=== PATIENT | female | born 1945 | race Caucasian/White ===

== ENCOUNTER 2016-10-28 18:58 | Emergency (ER) | payer OTHER ==
[2016-10-28 19:07] VITALS: PULSE 64; RESP 16
--- NOTE | 2016-10-28 19:19 | EDPHY ---
H & P Smoking Status: Never smoked Time Seen by Provider: 10/28/16 19:09 HPI/ROS: CHIEF COMPLAINT: Head injury HISTORY OF PRESENT ILLNESS: Patient was backing down concrete stairs at the tennis court at 1:00 p.m. when she lost her balance and fell down hitting back of her head. Presents with headache and laceration to her scalp. No loss of consciousness and no vomiting. No vertigo or ataxia. She has some mild neck pain but no weakness or numbness in extremities. She had a sore right hand and hip but is able to walk without any change in symptoms. She really only complains of her head injury. REVIEW OF SYSTEMS: Eye: no change in vision ENT: no sore throat Cardiac: no chest pain or syncope Pulmonary: no cough or SOB Abdomen: no vomiting, diarrhea, abdominal pain Musculoskeletal: no back pain Skin: Laceration on the scalp Neuro: As above Constitutional: no fever : no urinary symptoms A comprehensive 10 point review of systems is otherwise negative aside from elements mentioned in the history of present illness. PAST MEDICAL HISTORY: Hyperlipidemia Social history: , no alcohol today General Appearance: Alert and conversant, cooperative. Eyes: No scleral icterus. ENT, Mouth: Normal mucous membranes. Respiratory: Normal respiratory effort, breath sounds equal, lungs are clear to auscultation. Cardiovascular: Regular rate and rhythm. Gastrointestinal: Abdomen is soft and non tender. Neurological: Alert and oriented x3. Normally conversant. Face symmetric, normal movement and sensation in all extremities. No pronator drift. Patient is not ataxic. Normal gait. Fluent speech. Skin: Posterior scalp laceration on the occiput. Musculoskeletal: No extremity bony tenderness. She can walk and is not ataxic. She can do a deep knee bend. No hand or snuffbox bony tenderness. No midline thoracic or lumbar spinal tenderness. Some diffuse neck tenderness not well localized. Psychiatric: Not agitated. Emergency Department course/MDM: Went to urgent care and got tetanus vaccine updated and was sent here. Plan for head and cervical spine CT, wound care and suture scalp laceration. 2049: CT per [place] shows SDH and left frontal intraparenchymal hemorrhage; discussed with the patient and with neurosurgeon Dr. Ball at this time. He reviewed CT scan and we discussed the case in detail and he recommends discharge with outpatient clinical monitoring. 2125: reexamined, reviewed CT with patient and family on PACs, they are comfortable with DC and clinical followup. (Yovani Hernández) Constitutional: Initial Vital Signs Temperature (C) 36.4 C 10/28/16 19:02 Heart Rate 64 10/28/16 19:02 Respiratory Rate 16 10/28/16 19:02 Blood Pressure 99/50 L 10/28/16 19:02 O2 Sat (%) 97 10/28/16 19:02 O2 Delivery Mode Room Air Allergies/Adverse Reactions: No Known Allergies Allergy (Unverified 10/28/16 19:01) Home Medications: Medication Instructions Recorded Paxil 30mg (*) 10/28/16 SIMVASTATIN 10/28/16 Medical Decision Making Consult/Admit Bed Type: [facility] - Diagnostics Imaging Results: Imaging Impressions Cervical Spine CT 10/28/16 19:16 Impression: 1. No definite fracture. 2. Moderate cervical spondylosis, worse at C5-C6, resulting in mild to moderate central canal and neural foraminal stenosis. 3. If there is persistent pain or neurological deficit, recommend MR cervical spine and consider flexion and extension views, if clinically indicated. Findings and recommendations discussed with Emergency Department physician, Yovani Hernández M.D., at 2100 hours, on October 28, 2016. Final report concurs with initial preliminary interpretation. Head CT 10/28/16 19:16 Impression: 1. Small right frontal and right parafalcine subdural hematomas. 2. Small left frontal hemorrhagic cortical contusion. 3. Right parietal scalp laceration, without skull fracture. 4. Mild atrophy and moderate microvascular ischemic gliosis. 5. Cerebrovascular atherosclerosis. 6. No midline shift, herniation, or definite infarct. Findings and recommendations discussed with Emergency Department physician, Yovani Hernández M.D., at 2050 hours, on October 28, 2016. Final report concurs with initial preliminary interpretation. Procedures: Procedure: Laceration repair. Verbal consent was obtained from the patient. The 5 cm laceration on the occipital scalp was anesthetized in the usual fashion. The wound was irrigated, draped and explored to its base with a gloved finger. There were no deep structures involved. No tendon injury was identified. The wound was repaired with 4 0 Prolene, 7 simple interrupted sutures. The wound repair was simple. The procedure was performed by myself. (Miguel Angel Gonsalez) Differential Diagnosis: Differential diagnosis considered for head injury including but not limited to concussion, skull fracture, intraparenchymal contusion, subarachnoid, subdural and epidural hematoma. (Yovani Hernández) Departure - Departure Disposition: Home, Routine, Self-Care Clinical Impression: Subdural hematoma Occipital scalp laceration Qualifiers: Encounter type: initial encounter Qualified Code(s): S01.01XA - Laceration without foreign body of scalp, initial encounter Condition: Good Instructions: Laceration (ED), Head Injury (ED) Additional Instructions: Wound Care Follow-Up: Removal of sutures in 7 days. Suture removal is complimentary in uncomplicated cases. Infection or abnormal findings would require reevaluation by the MD. In that case, you may be billed. Referrals: Shelli Gupta MD [Primary Care Provider] - As per Instructions Jaydon Ball MD [Medical Doctor] - As per Instructions (Dr. Ball's office from Neurosurgery office will call you tomorrow.)
[2016-10-28 21:45] VITALS: BP 150/86; TEMP 97.9; O2SAT 94
== END 2016-10-28 21:44 | disposition home or self-care (01) ==
PROC: 0HQ0XZZ Repair Scalp Skin, External Approach (ICD-10-PCS; principal; 2016-10-28)
DX: S01.01XA Laceration without foreign body of scalp, initial encounter (principal); S06.5X0A Traumatic subdural hemorrhage without loss of consciousness, initial encounter; W10.8XXA Fall (on) (from) other stairs and steps, initial encounter; Y92.312 Tennis court as the place of occurrence of the external cause

== ENCOUNTER → 2017-02-24 | Outpatient (CLI) | payer OTHER | LOC: FIMAGING 08:43 | PROVIDERS: ATTEND Family Medicine | DX: Z12.31 Encounter for screening mammogram for malignant neoplasm of breast (principal) | CPT/HCPCS: G0202 ==

== ENCOUNTER → 2017-02-28 | Outpatient (CLI) | payer OTHER | LOC: FIMAGING 14:12 | PROVIDERS: ATTEND Family Medicine | DX: D25.1 Intramural leiomyoma of uterus (principal); N76.0 Acute vaginitis; Z79.899 Other long term (current) drug therapy ==

== ENCOUNTER 2018-05-24 17:42 | Observation (INO) | payer OTHER ==
[2018-05-24] MEDS ORDERED: NS 1,000 ML IV ONE (17:52)
--- NOTE | 2018-05-24 17:52 | EDPHY ---
H & P Stated Complaint: R lower abd pain 1 day, chills Time Seen by Provider: 05/24/18 17:52 HPI/ROS: HPI CHIEF COMPLAINT: Abdominal pain, nausea, fever HISTORY OF PRESENT ILLNESS: Very pleasant 72 female, presents emergency room for abdominal pain nausea and fever. Patient reports that she had a greasy hamburger around noon today. Around 1:00 to 2:00 in a.m. Afternoon she developed sudden-onset chills, rigors, shaking, associated nausea and abdominal pain. No vomiting. No diarrhea. Her pain is persisted it is mainly on the right side of her abdomen right lower quadrant right upper quadrant. She has associated nausea with this but no vomiting. She states she took her temperature at home was 102. She is afebrile here. No abdominal surgical history Past Medical History: Significant medical history for hyperlipidemia. Past Surgical History: Denies Social History: Denies drugs alcohol tobacco. 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 at bedside. Family History: Noncontributory ROS REVIEW OF SYSTEMS: 10 Systems were reviewed and negative with the exception of the elements mentioned in the history of present illness. Exam Constitutional nontoxic appearing triage nursing summary reviewed, vital signs reviewed, awake/alert. Vital signs stable Eyes normal conjunctivae and sclera, EOMI, PERRLA. HENT normal inspection, atraumatic, moist mucus membranes, no epistaxis, neck supple/ no meningismus, no raccoon eyes. Respiratory clear to auscultation bilaterally, normal breath sounds, no respiratory distress, no wheezing. Cardiovascular rate normal, regular rhythm, no murmur, no edema, distal pulses normal. Gastrointestinal mildly tender right upper quadrant right lower quadrant. No peritoneal signs, no rebound, no guarding, normal bowel sounds, no distension, no pulsatile mass. Genitourinary no CVA tenderness. Musculoskeletal no midline vertebral tenderness, full range of motion, no calf swelling, no tenderness of extremities, no meningismus, good pulses, neurovascularly intact. Skin pink, warm, & dry, no rash, skin atraumatic. Neurologic awake, alert and oriented x 3, AAOx3, moves all 4 extremities equally, motor intact, sensory intact, CN II-XII intact, normal cerebellar, normal vision, normal speech. Psychiatric normal mood/affect. Heme/Lymph/Immune no lymphadenopathy. Differential diagnosis includes but is not limited to and in no particular order : Bowel obstruction, appendicitis, gallbladder disease, diverticulitis, colitis , enteritis, perforated viscus, gastritis, GERD, esophagitis, urinary tract infection, pyelonephritis, kidney stones Medical Decision Making: Plan for this patient IV establishment with IV fluid bolus Zofran nausea 0.5 Dilaudid for pain control CBC, chemistry, lactic, blood cultures, urinalysis CT scan abdomen pelvis with IV contrast due to abdominal pain. Re-evaluate. Re-evaluation: Discussed with the patient lab results and CT imaging. Her CT scan does not show any evidence of acute inflammation however air-fluid and fluid-filled loops. Possible enteritis. Additionally unable to visualize the appendix. No free air no free fluid. Given the patient's white count, abdominal pain, chills and rigors I do recommend we observe her overnight. I spoke with the hospitalist service Dr. Jones he agrees to admit Spoke with the patient she agrees for admission observation overnight Source: Patient - Medical/Surgical History Hx Asthma: No Hx Chronic Respiratory Disease: No Hx Diabetes: No Hx Cardiac Disease: No Hx Renal Disease: No Hx Cirrhosis: No Hx Alcoholism: No Hx HIV/AIDS: No Hx Splenectomy or Spleen Trauma: No Other PMH: hyperlipidemia - Social History Smoking Status: Never smoked Constitutional: Initial Vital Signs Temperature (C) 37.7 C 05/24/18 17:45 Heart Rate 88 05/24/18 17:45 Respiratory Rate 18 05/24/18 17:45 Blood Pressure 119/83 H 05/24/18 17:45 O2 Sat (%) 95 05/24/18 17:45 O2 Delivery Mode Nasal Cannula O2 (L/minute) 2 Allergies/Adverse Reactions: No Known Allergies Allergy (Unverified 10/28/16 19:01) Home Medications: Medication Instructions Recorded Aspirin EC [Aspirin EC 81 mg (*)] 81 mg PO HS 05/24/18 Calcium Carbonate [Tums 500MG (*)] 1,000 mg PO BIDMEAL PRN 05/24/18 PARoxetine HCL [Paxil 30mg (*)] 30 mg PO HS 05/24/18 Propylene Glycol/Peg 400/Pf 1 each OP Q6H PRN 05/24/18 [Systane 0.3-0.4% Eye Drop] Simvastatin 10 mg PO HS 05/24/18 Acetaminophen [Tylenol 325mg (*)] 650 mg PO Q4HRS PRN tab 05/25/18 Medical Decision Making - Data Points Laboratory Results: Laboratory Results 05/24/18 18:01 05/24/18 18:01 Medications Given: Discontinued Medications Enoxaparin Sodium (Lovenox) 40 mg SC DAILY [facility] Stop: 11/21/18 08:59 Last Admin: 05/25/18 08:10 Dose: 40 mg Hydromorphone HCl (Dilaudid) 0.5 mg IVP EDNOW ONE Stop: 05/24/18 18:02 Last Admin: 05/24/18 18:07 Dose: 0.5 mg Sodium Chloride (Ns) 1,000 mls @ 0 mls/hr IV EDNOW ONE; Wide Open PRN Reason: Protocol Stop: 05/24/18 17:53 Last Admin: 05/24/18 18:10 Dose: 1,000 mls Sodium Chloride (Ns) 1,000 mls @ 125 mls/hr IV CONT DWAIN Stop: 11/20/18 20:14 Last Admin: 05/25/18 08:09 Dose: 1,000 mls Ondansetron HCl (Zofran) 4 mg IVP EDNOW ONE Stop: 05/24/18 18:00 Last Admin: 05/24/18 18:04 Dose: 4 mg Departure - Departure [facility] Clinical Impression: Abdominal pain Qualifiers: Abdominal location: unspecified location Qualified Code(s): R10.9 - Unspecified abdominal pain Condition: Good
[2018-05-24] MEDS ORDERED: ONDANSETRON 4 MG/2 ML VIAL IVP ONE (17:59)
[2018-05-24] MEDS ORDERED: HYDROmorphONE/DILAUDID 2 MG/ML INJ IVP ONE (18:01)
[2018-05-24 18:20] LABS: PLATELET COUNT 272 10^3/uL (150-400)
[2018-05-24 18:31] LABS: INR 0.9 (0.83-1.16); PROTIME(PATIENT) 12.4 SEC (12.0-15.0)
[2018-05-24] MEDS ORDERED: IOPAMIDOL (ISOVUE-300) 100 ML BTL ONE (18:47)
[2018-05-24] MEDS ORDERED: HYDROCODONE/APAP 5/325 TAB PO PRN (20:07)
[2018-05-24] MEDS ORDERED: ONDANSETRON 4 MG/2 ML VIAL IVP PRN (20:07)
[2018-05-24] MEDS ORDERED: ACETAMINOPHEN 325 MG TAB PO PRN (20:07)
[2018-05-24] MEDS ORDERED: HYDROmorphONE/DILAUDID 1 MG/ML INJ IVP PRN (20:07)
[2018-05-24] MEDS ORDERED: ONDANSETRON DISINTEGRATING 4 MG TAB PO PRN (20:07)
[2018-05-24] MEDS ORDERED: PROMETHAZINE HCL 25 MG/ML INJ IVP PRN (20:07)
[2018-05-24] MEDS ORDERED: NS 1,000 ML IV SCH (20:15)
--- NOTE | 2018-05-24 20:38 | PDGENHP ---
History and Physical - Chief Complaint Abdominal Pain, Fever, Nausea - History of Present Illness Millicent Lo is a 72 yo F with a PMHx of HLD who presents to [facility] for abdominal pain, fever, and nausea. She reports eating a hamburger for lunch today around noon. At apprx 1-2 PM she started having acute-onset chills and rigors with associated nausea and abominal pain. She denies any vomiting, diarrhea. She complains of R sided abdominal pain, specifically RLQ. Pain is sharp, non- radiating. She reports taking her temperature at home which was 102. She denies any chest pain, SOB, edema, headache, hematochezia, hematemesis. History Information - Allergies/Home Medication List Allergies/Adverse Reactions: No Known Allergies Allergy (Unverified 10/28/16 19:01) Home Medications: Aspirin EC [Aspirin EC 81 mg (*)] 81 mg PO HS 05/24/18 [Last Taken 05/23/18] Calcium Carbonate [Tums 500MG (*)] 1,000 mg PO BIDMEAL PRN 05/24/18 [Last Taken 05/24/18] PARoxetine HCL [Paxil 30mg (*)] 30 mg PO HS 05/24/18 [Last Taken 05/23/18] Propylene Glycol/Peg 400/Pf [Systane 0.3-0.4% Eye Drops] 1 each OP Q6H PRN 05/24 [Last Taken Unknown] Simvastatin 10 mg PO HS 05/24/18 [Last Taken 05/23/18] I have personally reviewed and updated: family history, medical history, social history, surgical history - Past Medical History hyperlipidemia - Surgical History Reports: no pertinent surgical hx - Family History Positive for: non-pertinent - Social History Smoking Status: Never smoked Review of Systems Review of Systems: ROS: 10pt was reviewed & negative except for what was stated in HPI & below Physical Exam Physical Exam: Temp Pulse Resp BP Pulse Ox 38.1 C 87 18 123/66 H 94 05/24/18 19:57 05/24/18 19:57 05/24/18 19:57 05/24/18 19:57 05/24/18 19:57 Constitutional: no apparent distress Eyes: PERRL Ears, Nose, Mouth, Throat: moist mucous membranes Cardiovascular: regular rate and rhythym Respiratory: no respiratory distress Gastrointestinal: tenderness Skin: warm Musculoskeletal: full muscle strength Neurologic: AAOx3 Psychiatric: interacting appropriately Lab Data & Imaging Review 05/24/18 18:01 05/24/18 18: WBC 10.20 10^3/uL (3.80-9.50) H 05/24/18 18: RBC 4.24 10^6/uL (4.18-5.33) 05/24/18 18: Hgb 13.0 g/dL (12.6-16.3) 05/24/18 18: Hct 37.3 % (38.0-47.0) L 05/24/18 18: MCV 88.0 fL (81.5-99.8) 05/24/18 18: MCH 30.7 pg (27.9-34.1) 05/24/18 18: MCHC 34.9 g/dL (32.4-36.7) 05/24/18 18: RDW 12.9 % (11.5-15.2) 05/24/18 18: Plt Count 272 10^3/uL (150-400) 05/24/18 18: MPV 9.9 fL (8.7-11.7) 05/24/18 18: Neut % (Auto) 85.3 % (39.3-74.2) H 05/24/18 18: Lymph % (Auto) 8.8 % (15.0-45.0) L 05/24/18 18: Kings % (Auto) 4.8 % (4.5-13.0) 05/24/18 18: Eos % (Auto) 0.5 % (0.6-7.6) L 05/24/18 18: Baso % (Auto) 0.2 % (0.3-1.7) L 05/24/18 18: Nucleat RBC Rel Count 0.0 % (0.0-0.2) 05/24/18 18: Absolute Neuts (auto) 8.70 10^3/uL (1.70-6.50) H 05/24/18 18: Absolute Lymphs (auto) 0.90 10^3/uL (1.00-3.00) L 05/24/18 18:01 Absolute Monos (auto) 0.49 10^3/uL (0.30-0.80) 05/24/18 18: Absolute Eos (auto) 0.05 10^3/uL (0.03-0.40) 05/24/18 18: Absolute Basos (auto) 0.02 10^3/uL (0.02-0.10) 05/24/18 18: Absolute Nucleated RBC 0.00 10^3/uL (0-0.01) 05/24/18 18: Immature Gran % 0.4 % (0.0-1.1) 05/24/18 18: Immature Gran # 0.04 10^3/uL (0.00-0.10) 05/24/18 18: PT 12.4 SEC (12.0-15.0) 05/24/18 18: INR 0.90 (0.83-1.16) 05/24/18 18: APTT 25.7 SEC (23.0-38.0) 05/24/18 18: VBG Lactic Acid 1.2 mmol/L (0.7-2.1) 05/24/18 18: Sodium 134 mEq/L (135-145) L 05/24/18 18: Potassium 3.8 mEq/L (3.5-5.2) 05/24/18 18: Chloride 98 mEq/L (97-110) 05/24/18 18: Carbon Dioxide 23 mEq/l (22-31) 05/24/18 18: Anion Gap 13 mEq/L (6-14) 05/24/18 18: BUN 12 mg/dL (7-23) 05/24/18 18: Creatinine 0.8 mg/dL (0.6-1.0) 05/24/18 18: Estimated GFR > 60 05/24/18 18: Glucose 103 mg/dL (70-100) H 05/24/18 18: Calcium 9.7 mg/dL (8.5-10.4) 05/24/18 18: Total Bilirubin 0.3 mg/dL (0.1-1.4) 05/24/18 18: Conjugated Bilirubin 0.1 mg/dL (0.0-0.5) 05/24/18 18:01 Unconjugated Bilirubin 0.2 mg/dL (0.0-1.1) 05/24/18 18:01 AST 59 IU/L (14-46) H 05/24/18 18:01 ALT 31 IU/L (9-52) 05/24/18 18:01 Alkaline Phosphatase 81 IU/L (38-126) 05/24/18 18:01 Total Protein 7.5 g/dL (6.3-8.2) 05/24/18 18:01 Albumin 4.5 g/dL (3.5-5.0) 05/24/18 18:01 Lipase 172 IU/L (23-300) 05/24/18 18:01 Urine Color PALE YELLOW 05/24/18 19:35 Urine Appearance CLEAR 05/24/18 19:35 Urine pH 6.0 (5.0-7.5) 05/24/18 19:35 Ur Specific [place] 1.012 (1.002-1.030) 05/24/18 19:35 Urine Protein NEGATIVE (NEGATIVE) 05/24/18 19:35 Urine Ketones NEGATIVE (NEGATIVE) 05/24/18 19:35 Urine Blood 1+ (NEGATIVE) H 05/24/18 19:35 Urine Nitrate NEGATIVE (NEGATIVE) 05/24/18 19:35 Urine Bilirubin NEGATIVE (NEGATIVE) 05/24/18 19:35 Urine Urobilinogen NEGATIVE EU (0.2-1.0) 05/24/18 19:35 Ur Leukocyte Esterase TRACE (NEGATIVE) H 05/24/18 19:35 Urine RBC 1-3 /hpf (0-3) 05/24/18 19:35 Urine WBC 1-3 /hpf (0-3) 05/24/18 19:35 Ur Epithelial Cells TRACE /lpf (NONE-1+) 05/24/18 19:35 Urine Mucus TRACE /lpf (NONE-1+) 05/24/18 19:35 Urine Glucose NEGATIVE (NEGATIVE) 05/24/18 19:35 Assessment & Plan Assessment: Acute Gastroenteritis - Acute onset abdominal pain, nausea, fevers at home today after eating hamburger for lunch - CT A/P shows moderately distended cecum, ileum filled with gas and liquid fecal material, no obvious obstruction, possible sigmoid inflammation - Will treat supportively with IVF, pain and anti-emetic medications PRN - GI PCR ordered Hyponatremia - Na 134 on admission - Likely in setting of above - Continue to monitor HLD - Continue home statin when med rec complete FEN: IVF, NPO Code: FULL PPx: SubQ Lovenox Dispo: Admit to Observation
[2018-05-25 08:20] VITALS: BP 115/54
[2018-05-25] MEDS ORDERED: ENOXAPARIN 40 MG/0.4 ML SYR SC SCH (09:00)
[2018-05-25] MEDS ORDERED: CALCIUM CARBONATE 500 MG CHEWABLE TAB PO PRN (09:37)
[2018-05-25] MEDS ORDERED: PROPYLENE GLYCOL OP PRN (09:37)
[2018-05-25] MEDS ORDERED: PEG OP PRN (09:37)
[2018-05-25] MEDS ORDERED: ASPIRIN EC 81 MG TAB PO SCH (21:00)
[2018-05-25] MEDS ORDERED: PRAVASTATIN SODIUM 20 MG TAB PO SCH (21:00)
--- NOTE | 2018-05-25 22:58 | GDS ---
DISCHARGE DIAGNOSIS: Abdominal pain with nausea and vomiting. PHYSICAL EXAMINATION: GENERAL: The patient is alert. VITAL SIGNS: Afebrile at 36.3, pulse 59, res piratory rate 16, blood pressure is 115/54. She is saturating 96% on room air. I have seen evaluated the patient on the day of discharge. HOSPITAL COURSE: The patient is a 72-year-old female who presented to the emergency room after exper iencing acute onset of chills and rigors with nausea and abdominal pain. She was admitted the hospit [facility] for observation status and rehydration. The etiology of her acute gastroenteritis is unclear at t his time. However, symptoms have completely resolved. She is tolerating a regular diet. She has no further complaints and is eager to be discharged home. Her hyponatremia has been treated with IV fl uids, and she is stable to leave the hospital. I have instructed her to follow up with her primary c are physician if her symptoms should return or she has concerns in the future. She is agreeable with this plan. DISCHARGE MEDICATIONS: Please refer to EMR form. I have not provided any prescriptions at the time of disposition. FOLLOWUP: Followup will be with her primary care physician, Dr. Shelli Gupta. /[id number]/MODL
== END 2018-05-25 10:35 | disposition home or self-care (01) ==
LOC: F3E 22:24
PROVIDERS: ADMIT Internal Medicine; ATTEND Internal Medicine
DX: K52.9 Noninfective gastroenteritis and colitis, unspecified (principal); E87.1 Hypo-osmolality and hyponatremia; E86.0 Dehydration; E78.5 Hyperlipidemia, unspecified
CPT/HCPCS: 74177; 96372; 96374; 96375; 99285; G0378; J1170; J1650; J2405; Q9967

== ENCOUNTER → 2018-09-11 | Outpatient (CLI) | payer OTHER | LOC: FIMAGING 08:57 | PROVIDERS: ATTEND Family Medicine | DX: Z12.31 Encounter for screening mammogram for malignant neoplasm of breast (principal); Z13.820 Encounter for screening for osteoporosis; M85.89 Other specified disorders of bone density and structure, multiple sites; Z79.899 Other long term (current) drug therapy; Z78.0 Asymptomatic menopausal state ==